=== PATIENT | female | born 1985 | race Caucasian/White ===

== ENCOUNTER → 2018-11-05 | Outpatient (CLI) | payer OTHER, SELFPAY ==
[2018-11-05 12:49] LABS: Absolute Lymphocyte Count 1.48 X10^3/uL (0.83-4.51); Absolute Neutrophil Count 7.8 X10^3/uL (2.0-7.7); Basophil# 0.06 X10^3/uL; Basophil% 0.6 % (0-1); Hematocrit 43.4 % (37-47); Hemoglobin 14.5 g/dL (12.0-15.0); Lymphocyte # 1.48 X10^3/ul (4.0); Lymphocyte % 14.8 % (19-41); Mean Corp Hgb Conc 33.4 g/dL (32-36); Mean Corpuscular Hgb 31.9 pg (27.0-32.0); Mean Corpuscular Volume 95.6 fL (81-99); Mean Platelet Vol. 11.7 fl (6.2-12.0); Monocyte# 0.52 X10^3/uL; Monocyte% 5.2 % (0-10); NRBC Flagged by Analyzer 0 % (0-5); Neutrophil # 7.82 X10^3/uL (2.7-7.7); Neutrophil % 78.1 % (47-70); Platelet Count 283 K/mm3 (150-450); RBC Distribution Width SD 42.3 fl (35.1-43.9); Red Blood Count 4.54 M/mm3 (4.2-5.4)
[2018-11-05 13:17] LABS: Vitamin B12 1089 pg/mL (211-911); Vitamin D,25 Hydroxy 37.5 ng/mL (29.95-100.01)
[2018-11-05 13:23] LABS: BUN 13 mg/dL (7-18); Glucose 96 mg/dL (74-106)
[2018-11-05 13:24] LABS: ALB/GLOB Ratio 1.1 RATIO (0.9-2.4); AST(SGOT) 21 U/L (15-37); Alanine Aminotransfer ALT/SGPT 29 U/L (13-56); Alkaline Phosphatase 59 U/L (45-117); Anion Gap 7 (5-15); BUN/Creat Ratio 18.6 RATIO (10-20); Calcium,Total 9.3 mg/dL (8.5-10.1); Chloride 106 mmol/L (98-107); EST Glomerular Filtration Rate 104 mL/min (>60); Est Glom Filt Rate - Afr Amer 125 mL/min (>60); Globulin 3.8 g/dL (2.2-4.2); Protein, Total 7.8 g/dL (6.4-8.2); Sodium Level 136 mmol/L (136-145); Thyroid Stim Hormone (TSH) 1.47 uIU/mL (0.358-3.74)
== END | disposition home or self-care (01) ==
PROVIDERS: Family Provider Internal Medicine; PCP Internal Medicine; Referring Provider Internal Medicine; Visit Provider Internal Medicine
DX: F41.9 Anxiety disorder, unspecified (principal); F32.9 Major depressive disorder, single episode, unspecified; R53.83 Other fatigue
CPT/HCPCS: 36415; 80053; 82306; 82607; 84443; 85025

== ENCOUNTER → 2019-01-24 | Outpatient (CLI) | payer OTHER, SELFPAY ==
--- NOTE | 2019-01-24 06:32 | MRI_ITS ---
STUDY: MRA OF THE HEAD WITHOUT CONTRAST REASON FOR EXAM: Female, 33 years old. headaches with sexual activity- frontal headaches. TECHNIQUE: 3-D [id number] (TOF) imaging was performed with MIPs. The study was performed unenhanced. COMPARISON: None. FINDINGS: Normal bilateral petrous carotid arteries. Normal right cavernous carotid artery with a normal supraclinoid bifurcation. Normal left cavernous carotid artery with a normal supraclinoid bifurcation. Normal right A1 segments of the anterior cerebral artery. Normal left A1 segments of the anterior cerebral artery. Normal intact anterior communicating artery (ACOM). Normal bilateral A2 segments of the anterior cerebral arteries. Normal right M1 and M2 segments of the middle cerebral arteries, with a normal M1 bifurcation. Normal left M1 and M2 segments of the middle cerebral arteries, with a normal M1 bifurcation. There is non-visualization of the right posterior communicating artery (PCOM). Normal left posterior communicating artery (PCOM). Normal bilateral vertebral arteries. Normal basilar artery with a normal basilar bifurcation. The visualized bilateral superior cerebellar (SCA) arteries are normal. Normal bilateral P1, P2 and visualized P3 segments of the posterior cerebral arteries. There is no demonstrated aneurysm of the mo[place] of [place]. There is no major vessel occlusion or hemodynamically significant stenosis. There is no demonstrated abnormality of the visualized brain. MRI/MRA Head ONLY without Contrast IMPRESSION: Normal MRA of the head Electronically Signed: Shanelle Zamora MD at 8:13 EST Tel , Service support ,
--- NOTE | 2019-01-24 06:32 | MRI_ITS ---
STUDY: MRI BRAIN WITH AND WITHOUT CONTRAST REASON FOR EXAM: Female, 33 years old. frontal headache with sexual activity. TECHNIQUE: Standardized multiplanar fat and water weighted pulse sequences were obtained. IV Dotarem 13 was administered for the contrast portion of the examination. COMPARISON: None. FINDINGS: Normal size of the ventricles and extra-axial spaces for the patient's age. Normal white matter tracts of the supratentorial brain. Normal bilateral basal ganglia. Normal thalami. There is no extra-axial fluid accumulation. Normal flow voids within the major intracranial circulation suggesting patency by spin echo criteria. Normal venous enhancement. There is no enhancing intra-axial or extra-axial abnormality. Normal sella turcica, pituitary gland, infundibular stalk, optic chiasm and hypothalamus. Normal tectal plate and pineal gland. Normal midbrain, garce and medulla. Normal cerebellum. Normal basal cisterns. Normal bilateral temporal bones. MRI/Brain W/WO Contrast IMPRESSION: Unremarkable unenhanced and enhanced MRI of the brain. Electronically Signed: Shanelle Zamora MD at 8:12 EST Tel , Service support ,
== END | disposition home or self-care (01) ==
LOC: MRI 06:28
PROVIDERS: Family Provider Internal Medicine; PCP Internal Medicine; Referring Provider Internal Medicine; Visit Provider Internal Medicine
DX: G44.82 Headache associated with sexual activity (principal)
CPT/HCPCS: 70544; 70553; A9575

== ENCOUNTER 2020-01-07 12:56 | Observation (INO) | payer OTHER, SELFPAY ==
[2020-01-07 12:56] VITALS: BP 99/47; PULSE 63; RESP 18; TEMP 36.8; O2SAT 100; BMI 25.0
--- NOTE | 2020-01-07 13:58 | CT_ITS ---
STUDY: CT ABDOMEN AND PELVIS WITHOUT CONTRAST REASON FOR EXAM: Female, 34 years old. LOW BACK PAIN SUDDEN ONSET RADIATION DOSAGE (If Supplied By Facility): CTDIvol = ( 10.25 ) mGy, DLP = ( 441.29 ) mGycm TECHNIQUE: Transaxial images were obtained from the dome of the diaphragm to the symphysis pubis without oral contrast, and without intravenous contrast. Sagittal and coronal images were reconstructed. Individualized dose optimization techniques were used for this CT. COMPARISON: None. FINDINGS: The visualized lung bases are unremarkable. The visualized portions of the heart are within normal limits. Normal liver. Sludge or small gallstones seen in the gallbladder lumen. Normal spleen. Normal pancreas. Normal bilateral adrenal glands. Normal right kidney. Normal left kidney. Normal visualized stomach. Normal small intestine. Gaseous distention of the rectosigmoid colon. The appendix is visualized and appears normal. Normal abdominal aorta. Normal inferior vena cava. Normal retroperitoneum. Distended urinary bladder. Follicles are seen in the left ovary. Normal abdominal wall. Normal osseous structures. CT/Abdomen/Pelvis without Cont IMPRESSION: Distended urinary bladder. Gaseous distention of the rectosigmoid colon. Sludge or small gallstones within the gallbladder lumen. Electronically Signed: Geovany Herring, at 15:42 EDT , Service support ,
--- NOTE | 2020-01-07 13:59 | ED.DCSUM_ITS ---
- ER Visit Summary Date of Service: 01/07/20 Chief Complaint: [Back pain] History of Present Illness: The patient is a 34 F [presents to the emergency department complaint of pain in her back since around 11 AM. Patient states that she bent over to unhook her dog and kind of felt her back catch so she kind of adjusted her feet and pelvis a little bit. Patient try to stand and when she did she has a severe onset of pain in her legs gave out causing her to fall to the ground. Patient unable to get up for about 2 hours afterwards. She called her who eventually called EMS. Patient has pain also into her left lower abdomen. This morning when she woke up she had some dysuria when she urinated. Patient states that she has had some mild discomfort in her back for several weeks but nothing like this. Patient otherwise has no medical history. She has had a prior tubal ligation. She denies any pain rating down her legs. She denies numbness or tingling in her legs. She denies loss of bowel or bladder.] Physical Examination: HEENT-PERRLA, EOMI. Cranial nerves II through XII grossly intact. TMs clear. Mucous membranes moist. No adenopathy. Cardiovascular-regular rate and rhythm without murmur or ectopy Lungs-clear to auscultation, chest wall stable without crepitus or subcu emphysema Abdomen-normoactive bowel sounds, soft. Patient has tenderness palpation over left lower quadrant some guarding. There is no rebound, rigidity, or peritoneal signs. Back exam-patient has tenderness to palpation over the sacrum. Patient has CVA tenderness on the left. Patient does have pain with straight leg raising bilaterally at about 30 degrees. Deep tendon reflexes are plus 2 out of 4 bilaterally at the patella and Achilles. Patient has normal 5 extension bilaterally. Extremities-intact ?4, normal range of motion, normal pulses, atraumatic] Test Results: [CBC with it was normal. Chemistries normal. CT flank showed nothing acute. Urinalysis was normal. MRI lumbar spine ordered and pending] Emergency Department Course and Treatment: [Medicate in the department with Dilaudid and Zofran. Patient received morphine and Zofran per squad en route to the hospital. She continued complaint of pain and was redosed with Dilaudid 1 mg IV.] Treatment Plan: [Pending. Case turned over to evening physician awaiting MRI results and final disposition.] Disposition: [Pending] Impression: [Acute intractable low back pain] This note was generated with [employer] dictation software. It may contain incorrect words, spelling, and punctuation that were not noted in review of the chart prior to signing ED Disposition - Plan for ED Patient: Referrals: Ruben,Mary, DO [Primary Care Provider] -
[2020-01-07 14:12] LABS: Bacteria 0 SEEN /hpf (None Seen); Mucous, Urine 0 SEEN /hpf (<or=2+); Red Blood Cells-Urine 0 SEEN /hpf (0-5); Squamous Epithelial Cells - UA 0 SEEN /hpf (5-10); White Blood Cells 0 SEEN /hpf (0-5)
[2020-01-07 14:16] LABS: Color, Urine Yellow (Yellow); Glucose, Dipstick Normal (Normal); Ketone-Dipstick Negative (Negative); Leukocyte Esterase-Dipstick Negative /ul (Negative); Nitrite-Dipstick Negative (Negative); Occult Blood-Urine Negative /ul (Negative); Protein-Dipstick Negative (Negative); Specific Gravity, Urine 1.005 (1.002-1.030); Urine Bilirubin Dipstick Negative (Negative); Urine Clarity Clear (Clear); Urine Urobilinogen Normal (Normal)
[2020-01-07] MEDS: HYDROmorphone 1 MG/ML Syringe IV ×3 (14:51→18:50)
[2020-01-07] MEDS: Ondansetron 4 MG/2 ML Vial IV (14:52)
[2020-01-07] MEDS: 0.9% Normal Saline 1,000 ML 125 ML IV (14:52)
[2020-01-07] MEDS: Ketorolac 30 MG/ML Syringe IV (14:52)
[2020-01-07 15:10] LABS: Absolute Lymphocyte Count 2.22 X10^3/uL (0.83-4.51); Absolute Neutrophil Count 7.7 X10^3/uL (2.0-7.7); Basophil# 0.06 X10^3/uL; Basophil% 0.6 % (0-1); Eosinophils% 1.8 % (0-5); Hemoglobin 12.9 g/dL (12.0-15.0); Lymphocyte # 2.22 X10^3/ul (4.0); Lymphocyte % 20.4 % (19-41); Mean Corp Hgb Conc 31.5 g/dL (32-36); Mean Corpuscular Hgb 31.5 pg (27.0-32.0); Mean Corpuscular Volume 100.2 fL (81-99); Monocyte# 0.65 X10^3/uL; NRBC Flagged by Analyzer 0 % (0-5); Neutrophil # 7.74 X10^3/uL (2.7-7.7); Neutrophil % 70.9 % (47-70); Platelet Count 299 K/mm3 (150-450); RBC Distribution Width CV 11.9 % (11.6-14.6); RBC Distribution Width SD 44.9 fl (35.1-43.9); Red Blood Count 4.09 M/mm3 (4.2-5.4); White Blood Count 10.9 K/mm3 (4.4-11.0)
[2020-01-07 15:24] LABS: Anion Gap 2 (5-15); BUN 7 mg/dL (7-18); BUN/Creat Ratio 10.5 RATIO (10-20); Calcium,Total 8.8 mg/dL (8.5-10.1); Chloride 112 mmol/L (98-107); Creatinine, Serum 0.67 mg/dL (0.55-1.02); EST Glomerular Filtration Rate 109 mL/min (>60); Est Glom Filt Rate - Afr Amer 132 mL/min (>60); Estimated Creatinine Clearance 117.22 ml/min; Glucose 86 mg/dL (74-106); Potassium 3.6 mmol/L (3.5-5.1); Sodium Level 142 mmol/L (136-145)
[2020-01-07 15:26] VITALS: BP 115/65; PULSE 63; RESP 16; TEMP 36.8; O2SAT 100
--- NOTE | 2020-01-07 15:57 | MRI_ITS ---
STUDY: MRI LUMBAR SPINE WITHOUT CONTRAST REASON FOR EXAM: Female, 34 years old. Severe LBP, sudden onset this morning TECHNIQUE: Standardized fat and water weighted pulse sequences were obtained in the sagittal and axial planes. COMPARISON: None FINDINGS: T12-L1: Normal endplates. Normal disc height, hydration and morphology. Normal bilateral facet joints. Normal central canal and bilateral lateral recesses. Normal bilateral intervertebral neural foramina. Normal lumbar lordosis. There is no substantial scoliosis. Normal conus medullaris that terminates at the L1 level. L1-2: Normal endplates. Normal disc height, hydration and morphology. Normal bilateral facet joints. Normal central canal and bilateral lateral recesses. Normal bilateral intervertebral neural foramina. L2-3: Normal endplates. Normal disc height, hydration and morphology. Normal bilateral facet joints. Normal central canal and bilateral lateral recesses. Normal bilateral intervertebral neural foramina. L3-4: Normal endplates. Normal disc height, hydration and morphology. Normal bilateral facet joints. Normal central canal and bilateral lateral recesses. Normal bilateral intervertebral neural foramina. L4-5: Disc desiccation. Bulging annulus and bilateral facet hypertrophy with mild central canal and right foraminal stenoses. L5-S1: Broad central disc protrusion with mild central canal stenosis. Normal visualized sacral ala. Normal visualized paraspinous soft tissue structures. MRI/Spine Lumbar (Routine) IMPRESSION: Multilevel degenerative disease as described. No evidence of nerve root impingement. No evidence of acute compression fracture or epidural hematoma. Electronically Signed: Brandin Henning MD at 18:39 EDT Tel , Service support ,
[2020-01-07 17:49] VITALS: BP 105/84; PULSE 78; RESP 18; O2SAT 98
[2020-01-07 18:55] VITALS: BP 105/84; PULSE 73; RESP 18; TEMP 36.9; O2SAT 97
--- NOTE | 2020-01-07 19:04 | PCM.HP.STD ---
Problem List (1) Intractable low back pain Status: Acute History of Present Illness Date of Admission: 01/07/20 Chief Complaint: Back pain. The patient is a 34 year old F with no significant past medical history apart from depression presented to the emergency room because of back pain. Her symptoms started today around 11 AM, she bent over to unhook her dog, twisted her back and started having back pain. Pain is in the middle of her lower back, 10 out of 10 in severity, described as squeezing pain, or dates down to both lower extremities more to the left lower extremity, aggravated by any type of movement or pending, relieved with rest and without other associated symptoms. She reported some kind of very minimal tingling on the left lower extremity. She denied paresthesia in the perineal region. She denied urine or stool incontinence. She denied fever or chills. She denied mechanical fall or trauma. In the emergency department, her vital signs were stable. Her routine blood work was unremarkable. Urinalysis was unremarkable. CT scan abdomen and pelvis without contrast revealed no acute findings, no acute pathology. She had lumbar spine MRI done and that revealed L4-L5 disc bulging, L5-S1 broad central disc protrusion with mild central canal stenosis. Patient received 3 doses of IV Dilaudid as well as IV Toradol and she reported improvement, continued to be very painful especially upon ambulation with movement. She is being admitted for intractable low back pain/radiculopathy. 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 Lives: With Family Smoking Status: Current every day smoker Tobacco Use: Cigarettes Alcohol: None Drugs: None - *Family History Maternal History Items: No pertinent history Paternal History Items: No pertinent history Review of Systems Constitutional: Denies: Anorexia, Chills, Fever, Weakness Eyes: Denies: Blurred vision, Double vision, Drainage, Redness, Vision Change HEENT: Denies: Difficulty Hearing, Dysphasia, Ear Pain, Eye Pain, Nasal Congestion, Sore Throat Cardiovascular: Denies: Chest Pain, Chest Pressure, Palpitations, Syncope Respiratory: Denies: Cough, Hemoptysis, Pleuritic Pain, Shortness of Breath, Sputum production, Wheezing Gastrointestinal: Denies: Abdominal Pain, Constipation, Diarrhea, Nausea, Vomiting Genitourinary: Denies: Dysuria, Frequency, Hematuria Musculoskeletal: Reports: Back Pain. Denies: Arm Pain, Foot Pain Skin: Denies: Dryness, Rash Neurological: Denies: Balance problems, Double vision, Change in Speech, Slurred speech, Confusion, Headaches, Incoordination, Numbness Psychiatric: Reports: Depression. Denies: Anxiety Endocrine: Denies: Change in Body Habitus, Polydipsia, Polyuria VTE Information - Inpt Only VTE Present on Admission: No VTE Mechan Device Prophylaxis: None VTE Pharm Prophylaxis ordered?: No Patient Problems: Active and Suspected Problems Intractable low back pain (Acute) - Physical Exam Vitals/I&O's: Vital Signs Temp Pulse Resp BP Pulse Ox 98.4 F 73 18 105/84 H 97 01/07/20 18:55 01/07/20 18:55 01/07/20 18:55 01/07/20 18:55 01/07/20 18:55 Oxygen Delivery Method Room Air Weight: 160 lb Body Mass Index (BMI) 25.0 General: Alert, Oriented x3, Cooperative, No apparent distress HEENT: Atraumatic, PERRLA, EOMI, Normocephalic Oral: Moist Mucosa, No Gingival or Mucosal Lesions/ Ulcerations Neck: Supple, No JVD, Negative Carotid Bruits, Trachea Midline, Thyroid Normal Size and Texture Lungs: Clear to auscultation, Normal air movement, No rhonchi, No wheeze, No rales Cardiovascular: Regular rate, Regular Rhythm, Normal S1, Normal S2, PMI Normal Abdomen: Bowel Sounds Present, Soft, Non Tender, Non-Distended, No Hepato-splenomegaly Extremities: No clubbing, No cyanosis, No edema Skin: No rashes, No breakdown Lymphatic: No Cervical, Supraclavicular, or Inguinal Adenopathy Neurological: Cranial nerves II-XII grossly intact, Motor Exam 5/5 strength throughout Psych/Mental Status: Normal Affect, Appropriate, Alert and oriented to time, place, person, mood and affect Laboratory Results 01/07/20 13:15: Urine Color Yellow, Urine Clarity Clear, Urine pH 7.0, Ur Specific [place] 1.005, Urine Protein Negative, Urine Glucose (UA) Normal, Urine Ketones Negative, Urine Occult Blood Negative, Urine Nitrite Negative, Urine Bilirubin Negative, Urine Urobilinogen Normal, Ur Leukocyte Esterase Negative, Urine RBC 0 SEEN, Urine WBC 0 SEEN, Ur Squamous Epith Cells 0 SEEN, Urine Bacteria 0 SEEN, Urine Mucus 0 SEEN 01/07/20 15:00: WBC 10.9, RBC 4.09 L, Hgb 12.9, Hct 41.0, MCV 100.2 H, MCH 31.5, MCHC 31.5 L, RDW Std Deviation 44.9 H, RDW Coeff of Miguel[place] 11.9, Plt Count 299, MPV 10.0, Immature Gran % (Auto) 0.300, Neut % (Auto) 70.9 H, Lymph % (Auto) 20.4, [place] % (Auto) 6.0, Eos % (Auto) 1.8, Baso % (Auto) 0.6, Absolute Neuts (auto) 7.7, Absolute Lymphs (auto) 2.22, Nucleated RBC % 0 01/07/20 15:00: Sodium 142, Potassium 3.6, Chloride 112 H, Carbon Dioxide 28.0, Anion Gap 2 L, BUN 7, Creatinine 0.67, Estim Creat Clear Calc 117.22, Est GFR (MDRD) Af Amer 132, Est GFR (MDRD) Non-Af 109, BUN/Creatinine Ratio 10.5, Glucose 86, Calcium 8.8 Clinical Impression(s) from Imaging Studies Abdomen/Pelvis CT 01/07/20 13:58 IMPRESSION: Distended urinary bladder. Gaseous distention of the rectosigmoid colon. Sludge or small gallstones within the gallbladder lumen. Electronically Signed: Geovany Herring at 15:42 EDT , Service support , Lumbar Spine MRI 01/07/20 15:57 IMPRESSION: Multilevel degenerative disease as described. No evidence of nerve root impingement. No evidence of acute compression fracture or epidural hematoma. Electronically Signed: Brandin Henning MD at 18:39 EDT Tel , Service support , Current Medications Sodium Chloride () 1,000 mls @ 125 mls/hr IV .Q8H FERMIN Last Admin: 01/07/20 14:52 Dose: 125 mls/hr Documented by: Assessment/Plan All Active Problems Intractable low back pain (Acute) This is a 34 years old female patient presented to the emergency room because of back pain, had MRI lumbar spine that revealed L4-L5 disc bulging with mild central canal and right foraminal stenosis, L5-S1 broad central disc protrusion with mild central canal stenosis, received multiple rounds of IV Dilaudid and IV Toradol in the ED without improvement and she is being admitted for intractable low back pain. #1 intractable low back pain: Due to findings mentioned above on the MRI lumbar spine. CT scan abdomen showed no acute findings. Routine blood work was unremarkable. Her vital signs are stable. No evidence of acute nerve compression or impingement. Plan: Admit to [facility] floor for observation, Tylenol as needed, IV morphine as needed, start prednisone 40 mg p.o. daily, Flexeril as needed, OxyIR as needed for pain, PT OT evaluation and treatment. #2 depression: Continue home medications when home medication list updated. #3 DVT prophylaxis: Low risk patient, no prophylaxis indicated. This note was generated with [employer] dictation software. It may contain incorrect words, spelling, and punctuation that were not noted in checking the note before signing. OBSV E&M: 76275 Initial observation care L2
[2020-01-07 19:35] VITALS: BMI 24.4
[2020-01-07 19:47] VITALS: BMI 24.4
[2020-01-07 20:03] VITALS: BP 121/67; PULSE 72; RESP 16; TEMP 36.6; O2SAT 98
[2020-01-07] MEDS: predniSONE 20 MG Tablet 40 MG PO (20:19)
[2020-01-07] MEDS: cycloBENZAPRine HCl 10 MG Tablet PO (20:35)
[2020-01-07] MEDS: oxyCODONE 5 MG Tablet PO (20:35)
[2020-01-07] MEDS: DULoxetine Hcl 60 MG Capsule PO (20:38)
[2020-01-08 02:28] VITALS: BP 102/53; PULSE 85; RESP 17; TEMP 36.6; O2SAT 97
[2020-01-08] MEDS: oxyCODONE 5 MG Tablet PO ×3 (02:35→15:56)
[2020-01-08] MEDS: cycloBENZAPRine HCl 10 MG Tablet PO ×2 (06:28→14:56)
[2020-01-08] MEDS: predniSONE 20 MG Tablet 40 MG PO (09:26)
[2020-01-08 09:30] VITALS: BP 102/54; PULSE 68; RESP 18; TEMP 37.1; O2SAT 98
--- NOTE | 2020-01-08 12:42 | PCM.PN.HOSP ---
Patient Problems: Active and Suspected Problems Intractable low back pain (Acute) Subjective: Continue to have significant low back pain. She is unable to sit up out of bed even with the assistance of physical therapy. Vitals/I&O's: Vital Signs Temp Pulse Resp BP Pulse Ox 98.7 F 68 18 102/54 L 98 01/08/20 09:30 01/08/20 09:30 01/08/20 09:30 01/08/20 09:30 01/08/20 09:30 Oxygen Delivery Method Room Air Weight: 155 lb 14.4 oz Body Mass Index (BMI) 24.4 Intake and Output for Last 24 Hours 01/06/20 01/07/20 01/08/20 23:59 23:59 23:59 Intake Total 579.17 / 579.17 1200 / 1200 Output Total 300 / 300 Balance 579.17 / 579.17 900 / 900 General: Alert, Oriented x3, Cooperative, No apparent distress HEENT: Atraumatic, PERRLA, EOMI, Normocephalic Oral: Moist Mucosa Neck: Supple, No JVD Lungs: Clear to auscultation, Normal air movement, No rhonchi, No wheeze, No rales Cardiovascular: Regular rate, Regular Rhythm, Normal S1, Normal S2, No murmurs Abdomen: Soft, Non Tender, Non-Distended, No Hepato-splenomegaly Extremities: No edema, Capillary Refill Less than 3 Seconds Skin: No rashes, No breakdown Neurological: Neuro grossly intact, Motor Exam 5/5 strength throughout, Sensory exam intact to light touch and pain Psych/Mental Status: Normal Affect, Appropriate Laboratory Results 01/07/20 13:15: Urine Color Yellow, Urine Clarity Clear, Urine pH 7.0, Ur Specific [place] 1.005, Urine Protein Negative, Urine Glucose (UA) Normal, Urine Ketones Negative, Urine Occult Blood Negative, Urine Nitrite Negative, Urine Bilirubin Negative, Urine Urobilinogen Normal, Ur Leukocyte Esterase Negative, Urine RBC 0 SEEN, Urine WBC 0 SEEN, Ur Squamous Epith Cells 0 SEEN, Urine Bacteria 0 SEEN, Urine Mucus 0 SEEN 01/07/20 15:00: WBC 10.9, RBC 4.09 L, Hgb 12.9, Hct 41.0, MCV 100.2 H, MCH 31.5, MCHC 31.5 L, RDW Std Deviation 44.9 H, RDW Coeff of Miguel[place] 11.9, Plt Count 299, MPV 10.0, Immature Gran % (Auto) 0.300, Neut % (Auto) 70.9 H, Lymph % (Auto) 20.4, [place] % (Auto) 6.0, Eos % (Auto) 1.8, Baso % (Auto) 0.6, Absolute Neuts (auto) 7.7, Absolute Lymphs (auto) 2.22, Nucleated RBC % 0 01/07/20 15:00: Sodium 142, Potassium 3.6, Chloride 112 H, Carbon Dioxide 28.0, Anion Gap 2 L, BUN 7, Creatinine 0.67, Estim Creat Clear Calc 117.22, Est GFR (MDRD) Af Amer 132, Est GFR (MDRD) Non-Af 109, BUN/Creatinine Ratio 10.5, Glucose 86, Calcium 8.8 Current Medications Acetaminophen (Acetaminophen 325 Mg Tablet) 650 mg PO Q6H PRN PRN PRN Reason: Pain Score 1-10/Temp > 100.7 F Cyclobenzaprine HCl (Cyclobenzaprine Hcl 10 Mg Tablet) 10 mg PO TID PRN PRN PRN Reason: Pain, spasm Last Admin: 01/08/20 06:28 Dose: 10 mg Documented by: Duloxetine HCl (Duloxetine Hcl 60 Mg Capsule) 60 mg PO QHS [facility] Last Admin: 01/07/20 20:38 Dose: 60 mg Documented by: Nicotine (Nicotine 21 Mg Patch) 21 mg TRANSDERM. DAILY [facility] Last Admin: 01/08/20 09:26 Dose: 21 mg Documented by: Ondansetron HCl (Ondansetron 4 Mg/2 Ml Vial) 4 mg IV Q8H PRN PRN PRN Reason: NAUSEA/VOMITING Oxycodone HCl (Oxycodone 5 Mg Tablet) 5 mg PO Q6H PRN PRN PRN Reason: Pain Score 6-10 Last Admin: 01/08/20 09:26 Dose: 5 mg Documented by: Prednisone (Prednisone 20 Mg Tablet) 40 mg PO DAILY@0800 [facility] Last Admin: 01/08/20 09:26 Dose: 40 mg Documented by: Senna/Docusate Sodium (Senna/Docusate Sodium 1 Tablet) 2 tablet PO BID PRN PRN PRN Reason: Constipation Sodium Chloride (0.9% Saline Lock 10 Ml Syringe) 10 - 40 ml IV UD PRN PRN Reason: SALINE FLUSH Zolpidem Tartrate (Zolpidem Tartrate 5 Mg Tablet) 5 mg PO QHS PRN PRN PRN Reason: INSOMNIA STROKE Vital Signs/Narrative: Vital Signs Temp Pulse Resp BP Pulse Ox 01/08/20 09:30 98.7 F 68 18 102/54 L 98 Medical Necessity - Tobacco Use Smoking Status: Current every day smoker Tobacco Use: Cigarettes Assessment/Plan All Active Problems Intractable low back pain (Acute) 1. Intractable low back pain -She is never had any issues with back pain prior to her mechanical fall yesterday. -MRI does not show any major nerve impingement. There is L4-L5 disc bulging and L5-S1 central disc protrusion -We will discontinue IV pain meds -Continue with Flexeril, prednisone, and oxycodone. I did discuss with her at length that she will not be discharged with any narcotics. -If she continues to have difficulty tomorrow can consult to pain management for assistance -No red flag symptoms 2. Depression -Stable -Continue with Cymbalta DVT: Low risk OBSV E&M: 90510 Subsequent observation care L2
[2020-01-08 14:57] VITALS: BP 114/49; PULSE 76; RESP 16; TEMP 36.7; O2SAT 98
[2020-01-08 20:59] VITALS: BP 105/57; PULSE 63; RESP 16; TEMP 36.7; O2SAT 98
[2020-01-08] MEDS: DULoxetine Hcl 60 MG Capsule PO (22:03)
[2020-01-09] MEDS: oxyCODONE 5 MG Tablet PO ×2 (01:17→12:27)
[2020-01-09] MEDS: Acetaminophen 325 MG Tablet 650 MG PO (01:19)
[2020-01-09 02:59] VITALS: BP 103/60; PULSE 57; RESP 16; TEMP 36.7; O2SAT 98
[2020-01-09 07:38] VITALS: O2SAT 97
[2020-01-09 08:11] VITALS: BP 104/55; PULSE 70; RESP 18; TEMP 36.6; O2SAT 98
[2020-01-09] MEDS: predniSONE 20 MG Tablet 40 MG PO (08:14)
--- NOTE | 2020-01-09 11:45 | PCM.DC ---
- Discharge Diagnoses Current Active Problems: Current Active and Chronic Problems Intractable low back pain (Acute) You will use the following diet at home:: Regular Your food should be the consistency of: Regular Your liquids should be the consistency of: Regular/Thin Discharge Activity: Return to Normal Activity Call your doctor if you observe: Fever of 101 or Higher, Shortness of breath, Dizziness, Fainting spells, Swelling in the ankles, Chest pain, Increased palpitations (irregular heartbeat) Allergies/Adverse Reactions: Allergies No Known Allergies Allergy (Verified 01/07/20 15:06) Medications to take at Discharge Duloxetine HCl 60 mg PO QHS 01/07/20 Multivit,Calc,Mins/Iron/Folic [Women's Daily Formula Caplet] 1 ea PO DAILY 01/07/20 cycloBENZAPRine HCl [Flexeril] 10 mg PO TID PRN PRN #15 tab 01/09/20 predniSONE tablet 40 mg PO DAILY@0800 #14 tab 01/09/20 The following prescriptions were given: cycloBENZAPRine HCl [Flexeril] 10 mg PO TID PRN PRN #15 tab PRN Reason: Pain, spasm Transmission Status: Pending to [facility] predniSONE tablet 40 mg PO DAILY@0800 #14 tab Transmission Status: Pending to [facility] Primary Care Physician: Mary Miranda DO [Primary Care Provider] - Please follow up with your Primary Care Physician in: 3-5 days Test Results: Test results from this visit will be discussed in further detail at your follow-up appointment, if applicable.
--- NOTE | 2020-01-09 13:08 | PCM.DC.SUM ---
Discharge Date and Diagnosis - Problem List Patient Problems: Active and Suspected Problems Intractable low back pain (Acute) Date of Admission: 01/07/20 Date of Discharge: 01/09/20 - Primary Discharge Diagnosis Acute Problems: Active Problems Intractable low back pain (Acute) - Secondary Discharge Diagnosis Chronic Problems: Chronic Problems Depression (Chronic) Hospital Course and Treatment Imaging Results: Clinical Impression(s) from Imaging Studies Abdomen/Pelvis CT 01/07/20 13:58 IMPRESSION: Distended urinary bladder. Gaseous distention of the rectosigmoid colon. Sludge or small gallstones within the gallbladder lumen. Electronically Signed: Geovany Herring, at 15:42 EDT , Service support , Lumbar Spine MRI 01/07/20 15:57 IMPRESSION: Multilevel degenerative disease as described. No evidence of nerve root impingement. No evidence of acute compression fracture or epidural hematoma. Electronically Signed: Brandin Henning MD at 18:39 EDT Tel , Service support , Operations: None Procedures: None Summary of Care Provided: Per HPI: The patient is a 34 year old F with no significant past medical history apart from depression presented to the emergency room because of back pain. Her symptoms started today around 11 AM, she bent over to unhook her dog, twisted her back and started having back pain. Pain is in the middle of her lower back, 10 out of 10 in severity, described as squeezing pain, or dates down to both lower extremities more to the left lower extremity, aggravated by any type of movement or pending, relieved with rest and without other associated symptoms. She reported some kind of very minimal tingling on the left lower extremity. She denied paresthesia in the perineal region. She denied urine or stool incontinence. She denied fever or chills. She denied mechanical fall or trauma. In the emergency department, her vital signs were stable. Her routine blood work was unremarkable. Urinalysis was unremarkable. CT scan abdomen and pelvis without contrast revealed no acute findings, no acute pathology. She had lumbar spine MRI done and that revealed L4-L5 disc bulging, L5-S1 broad central disc protrusion with mild central canal stenosis. Patient received 3 doses of IV Dilaudid as well as IV Toradol and she reported improvement, continued to be very painful especially upon ambulation with movement. She is being admitted for intractable low back pain/radiculopathy. Hospital Course: 1. Intractable low back pain -She is never had any issues with back pain prior to her mechanical fall yesterday. -MRI does not show any major nerve impingement. There is L4-L5 disc bulging and L5-S1 central disc protrusion -We will discontinue IV pain meds -Continue with Flexeril, prednisone, and oxycodone while inpatient. I did discuss with her at length that she will not be discharged with any narcotics. -She is feeling much better today, she still little bit tentative with activity but is able to do activities of daily living is able to bend over and be mobile. She would like to go home and she understands that she does not need the narcotics. She will be discharged on Flexeril and prednisone. I do asked that she follow-up with her primary care doctor and receive a referral to outpatient physical therapy if necessary. I discussed the plan for discharge today and she expressed understanding the risk and benefits of going home and would like to go home. 2. Depression -Stable -Continue with Cymbalta Patient Problems: Active and Suspected Problems Intractable low back pain (Acute) - Physical Exam Vitals/I&O's: Vital Signs Temp Pulse Resp BP Pulse Ox 97.9 F 70 18 104/55 L 98 01/09/20 08:11 01/09/20 08:11 01/09/20 08:11 01/09/20 08:11 01/09/20 08:11 Oxygen Delivery Method Room Air Weight: 155 lb 14.4 oz Body Mass Index (BMI) 24.4 Intake and Output for Last 24 Hours 01/07/20 01/08/20 01/09/20 23:59 23:59 23:59 Intake Total 579.17 / 579.17 1600 / 1950 750 / 750 Output Total 300 / 300 Balance 579.17 / 579.17 1300 / 1650 750 / 750 General: Alert, Oriented x3, Cooperative, No apparent distress HEENT: Atraumatic, PERRLA, EOMI, Normocephalic Oral: Moist Mucosa Neck: Supple, No JVD Lungs: Clear to auscultation, Normal air movement, No rhonchi, No wheeze, No rales Cardiovascular: Regular rate, Regular Rhythm, Normal S1, Normal S2, No murmurs Abdomen: Soft, Non Tender, Non-Distended, No Hepato-splenomegaly Extremities: No edema, Capillary Refill Less than 3 Seconds Skin: No rashes, No breakdown Neurological: Neuro grossly intact, Motor Exam 5/5 strength throughout, Sensory exam intact to light touch and pain Psych/Mental Status: Normal Affect, Appropriate Current Medications Acetaminophen (Acetaminophen 325 Mg Tablet) 650 mg PO Q6H PRN PRN PRN Reason: Pain Score 1-10/Temp > 100.7 F Last Admin: 01/09/20 01:19 Dose: 650 mg Documented by: Cyclobenzaprine HCl (Cyclobenzaprine Hcl 10 Mg Tablet) 10 mg PO TID PRN PRN PRN Reason: Pain, spasm Last Admin: 01/08/20 14:56 Dose: 10 mg Documented by: Duloxetine HCl (Duloxetine Hcl 60 Mg Capsule) 60 mg PO QHS [facility] Last Admin: 01/08/20 22:03 Dose: 60 mg Documented by: Nicotine (Nicotine 21 Mg Patch) 21 mg TRANSDERM. DAILY [facility] Last Admin: 01/09/20 08:14 Dose: 21 mg Documented by: Ondansetron HCl (Ondansetron 4 Mg/2 Ml Vial) 4 mg IV Q8H PRN PRN PRN Reason: NAUSEA/VOMITING Oxycodone HCl (Oxycodone 5 Mg Tablet) 5 mg PO Q6H PRN PRN PRN Reason: Pain Score 6-10 Last Admin: 01/09/20 12:27 Dose: 5 mg Documented by: Prednisone (Prednisone 20 Mg Tablet) 40 mg PO DAILY@0800 [facility] Last Admin: 01/09/20 08:14 Dose: 40 mg Documented by: Senna/Docusate Sodium (Senna/Docusate Sodium 1 Tablet) 2 tablet PO BID PRN PRN PRN Reason: Constipation Sodium Chloride (0.9% Saline Lock 10 Ml Syringe) 10 - 40 ml IV UD PRN PRN Reason: SALINE FLUSH Zolpidem Tartrate (Zolpidem Tartrate 5 Mg Tablet) 5 mg PO QHS PRN PRN PRN Reason: INSOMNIA Discharge Activity: Return to Normal Activity Call your doctor if you observe: Fever of 101 or Higher, Shortness of breath, Dizziness, Fainting spells, Swelling in the ankles, Chest pain, Increased palpitations (irregular heartbeat) Home Medications: Medications to take at Discharge Duloxetine HCl 60 mg PO QHS 01/07/20 Multivit,Calc,Mins/Iron/Folic [Women's Daily Formula Caplet] 1 ea PO DAILY 01/07/20 cycloBENZAPRine HCl [Flexeril] 10 mg PO TID PRN PRN #15 tab 01/09/20 predniSONE tablet 40 mg PO DAILY@0800 #14 tab 01/09/20 Following Prescriptions Were Given to Patient: cycloBENZAPRine HCl [Flexeril] 10 mg PO TID PRN PRN #15 tab PRN Reason: Pain, spasm Transmission Status: Received by [facility] predniSONE tablet 40 mg PO DAILY@0800 #14 tab Transmission Status: Received by [facility] Primary Care Physician: Mary Miranda DO [Primary Care Provider] - Please follow up with your Primary Care Physician in: 3-5 days Disposition: Home Minutes spent on discharge:: 35 Patient Condition:: Stable Medical Necessity - Tobacco Use Smoking Status: Current every day smoker Tobacco Use: Cigarettes Meaningful Use Info Meaningful Use Diagnoses (Choose all that apply): None applicable OBSV E&M: 89588 Observation care discharge
== END 2020-01-09 13:18 | disposition home or self-care (01) ==
LOC: ED 14:07 → MS3 19:20
PROVIDERS: Admitting Provider Hospitalist; Emergency Provider Emergency Medicine; PCP Internal Medicine; Visit Provider Family Medicine
DX: M51.26 Other intervertebral disc displacement, lumbar region (principal); M51.27 Other intervertebral disc displacement, lumbosacral region; F32.9 Major depressive disorder, single episode, unspecified; R30.0 Dysuria; M48.07 Spinal stenosis, lumbosacral region; M48.061 Spinal stenosis, lumbar region without neurogenic claudication; F17.210 Nicotine dependence, cigarettes, uncomplicated; Z79.899 Other long term (current) drug therapy
CPT/HCPCS: 72148; 74176; 80048; 81001; 85025; 96361; 96374; 96375; 96376; 97110; 97162; 99218; 99251; 99285; 99406; A4216; G0378; G0463; J2405

== ENCOUNTER 2020-01-27 08:00 | Outpatient (RCR) | payer OTHER, SELFPAY ==
--- NOTE | 2020-01-21 10:33 | HP.PTEVAL ---
Patient's Visit Information BERE GAMBLE is a 34 year old F referred to Physical Therapy by Dr. Mary Miranda DO with a diagnosis of Lumbar radiculopathy, DDD. Date of Evaluation: 01/20/20 Physical Therapist: Arsalan Beasley DPT - Visit Plan Frequency: 1x/Week Duration: 6 Weeks Plan: Core stability and extension progression as tolerated. - Subjective Pt presents this date for eval of LBP. Pt reports throwing her back out last week while trying to lift her dog up from the floor, felt pain and then slowly went to the floor. States she felt the pain down in her toes as well. States that the pain right now is only inm her R lower back and not in her legs. Pain is made worse when lifting items, standing in one spot for too long. Nothing really seems to make the pain better. Does not take anything for the pain. Is active throughout the day doing housework at her home and her mothers and also takes care of animals. Is unemployed otherwise. Does not have any issues sleeping. Has not noticed any numbness or tingling in her LEs. Returns to the Dr after trying PT. - Pain R lower back Pain Intensity (Out of 10): 2 Pain Intensity Range: 2, 10 RLE Pain Intensity (Out of 10): 0 Pain Intensity Range: 0, 4 - Objective POSTURE: Pt prefers standing to sitting and has posture WFL. PALPATION: Tenderness noted around L2-L3 area. No tenderness noted otherwise. ROM: Pt displays lumbar AROM WNL w/ pain noted at end range of flexion and sidebending to the L. MMT: R hip flex 4-/5. Dec core strength. No pain noted w/ testing. WNL elsewhere. NEURO: Dermatomes and DTRs of patellar and achilles tendons intact. Myotome weakness w/ R hip flex (L2). GAIT: WNL, no noted deviations. - Special Tests L/S Slump test left side: Positive L/S Slump test right side: Positive Lumbar Standing: Flexion - Mechanical Response: No effect Lumbar Standing: Flexion - Symptoms During Testing: Increases Lumbar Standing: Flexion - Symptoms After Testing: Worse Lumbar Standing: Extension - Mechanical Response: No effect Lumbar Standing: Extension - Symptoms During Testing: Decreases Lumbar Standing: Extension - Symptoms After Testing: Better Lumbar Standing: Right Side Glides - Mechanical Response: No effect Lumbar Standing: Right Side [place] - Symptoms During Testing: No effect Lumbar Standing: Right Side [place] - Symptoms After Testing: No effect Lumbar Standing: Left Side [place] - Mechanical Response: No effect Lumbar Standing: Left Side [place] - Symptoms During Testing: Increases Lumbar Standing: Left Side [place] - Symptoms After Testing: No effect Lumbar Lying: Extension - Mechanical Response: Increases motion Lumbar Lying: Extension - Symptoms During Testing: Decreases Lumbar Lying: Extension - Symptoms After Testing: Better - Goals Goal 1:: LTG: Pt to be I w/ HEP. Goal Time Frame: 4-6 Weeks Goal 2:: STG: Pt will report having dec incidence of LBP from constant to once daily or less. Goal Time Frame: 2-4 Weeks Goal 3:: LTG: Pt will report having dec incidence of LBP from constant to once weekly or less. Goal Time Frame: 4-6 Weeks Goal 4:: STG: Pt will report having no inc in s/s w/ ADLs. Goal Time Frame: 2-4 Weeks Goal 5:: LTG: Pt will report having no pain w/ ADLs. Goal Time Frame: 4-6 Weeks - Rehabilitation Potential Physical Therapy Diagnosis: S/s conistent w/ lumbar radiculopathy and DDD. Pt reprots having inc LBP w/ lumbar flex and L sidebending and symptoms dec or alleviate w/ lumbar ext. Displays dec core strength and stability. PT intervention indicated to address states deficits and inc core strength and stability while facilitating a dec in LBP. Pt. did have positive effect with extension and due to having lifting causing her initial injury I would like her to start with extension progressing then progress core stability as able. Rehabilitation Potential: Good - Anticipated Interventions Patient/Client Instruction: Educate patient on: Condition, Plan of Care, Risk Factors, Benefits of Fitness Program For the Purpose of:: To foster healthy habits, To improve self management, To prevent re-injury, To improve tolerance to ADL's Therapeutic Exercise to Include: Strength training, Flexibilty training, Dynamic Lumbar Stabilization, Jenna Exercises For the Purpose of:: To decrease pain, To improve muscle performance and motor function, To improve ability to perform ADL's, To increase tolerance to activity/condition/position, To improve ability of physical actions for home/community/work/leisure Cryotherapy (ice pack, ice massage): Yes Thermo therapy (hot pack): Yes Ultrasound (thermal/non thermal): Yes For the Purpose of:: To decrease pain Thank you for the opportunity to evaluate your patient. For Medicare and Medicare HMO plans, please review the plan of care and approve it. It will need to be FAXED BACK to us at [phone] for Medicare purposes. For Medicare only, by signing this I certify the plan of care. Please let me know if there are questions or concerns regarding this plan of care. Physician Signature: Date:
== END 2020-01-27 19:00 | disposition home or self-care (01) ==
LOC: PT 08:00
PROVIDERS: PCP Internal Medicine; Referring Provider Internal Medicine; Visit Provider Internal Medicine
DX: M51.16 Intervertebral disc disorders with radiculopathy, lumbar region (principal)
CPT/HCPCS: 97110; 97161